=== PATIENT | female | born 1930 | race African-American/Black ===

== ENCOUNTER 2020-02-24 12:56 | Emergency (ER) | payer MEDICARE ==
[2020-02-24 13:43] LABS: Hemoglobin 7.7 g/dL (12.0-16.0); Mean Corpuscular HGB CONC 30.8 g/dL (32.0-36.0); Mean Corpuscular Hemoglobin 31.4 pg (27.0-31.0); Mean Platelet Volume 6.4 fL (7.4-10.4); Platelet Count 431 thou/uL (130-400); RBC Distribution Width 23.2 % (11.5-14.5); Red Blood Cell (RBC) Count 2.45 mill/uL (4.20-5.40); White Blood Cell (WBC) Count 15.2 thou/uL (4.8-10.8)
[2020-02-24 13:48] LABS: ALT (SGPT) 10 U/L (8-55); AST (SGOT) 13 U/L (5-34); Albumin 3.6 g/dL (3.4-4.8); Alkaline Phosphatase 75 U/L (40-110); Anion Gap 15 mmol/L (10-20); BUN (Urea Nitrogen) 46 mg/dL (9.8-20.1); Bilirubin, Total 0.3 mg/dL (0.2-1.2); Calc. Creatinine Clearance 0 mL/min (70-130); Calcium 9.1 mg/dL (7.8-10.44); Carbon Dioxide 23 mmol/L (23-31); Chloride 107 mmol/L (98-107); Estimated GFR-MDRD 26; Globulin 3.3 g/dL (2.4-3.5); Glucose 166 mg/dL (83-110); Potassium 4.2 mmol/L (3.5-5.1); Protein, Total 6.9 g/dL (6.0-8.3); Sodium 141 mmol/L (136-145)
--- NOTE | 2020-02-24 14:03 | CT ---
Head CT without contrast: 02/24/2020 HISTORY:Syncope TECHNIQUE: Serial axial CT imaging at5 mm intervals from thevertex through skull base without contras t. Coronal and sagittal reformatted imaging obtained Findings:The imaged paranasal sinuses and mastoid air cells are well aerated. There is atheroscleroti c calcification of the cavernous carotid arteries. No acute osseous abnormality. No intracranial hemorrhage, midline shift, or mass effect. Mild periventricular hypodensity noted, ev idence of small vessel disease. There is a partially calcified mass along the planum sphenoidale/cribriform plate measuring 2.0 cm AP dimension, 1 cm craniocaudal dimension, and 1.7 cm transverse dimension. A meningioma is favored. Nonemergent follow-up MRI with and without contrast advised. Impression:Probable meningioma in the region of the planum sphenoidale/cribriform plate for which fol low-up MRI is advised. No acute findings are seen.
[2020-02-24 14:21] LABS: #Basophils 0.2 thou/uL (0.0-0.2); #Lymphocytes 1.8 thou/uL (1.20-3.40); #Monocytes 0.4 thou/uL (0.11-0.59); #Neutrophils 12.8 thou/uL (1.40-6.50); %Basophils 1.5 % (0.0-1.0); %Eosinophils 0.2 % (0.0-10.0); %Lymphocytes 11.5 % (21.0-51.0); %Monocytes 2.9 % (0.0-10.0); %Neutrophils 83.9 % (42.0-75.0); Anisocytosis SLIGHT = 6-15 cells (100X) (0-5/hpf); Elliptocytes SLIGHT = 2-5 cells (100X) (0-1/hpf); Hypochromia SLIGHT = 6-15 cells (100X) (0-5/hpf); MDiff Complete? YES; Macrocytosis SLIGHT = 6-15 cells (100X) (0-5/hpf); Microcytosis SLIGHT = 6-15 cells (100X) (0-5/hpf); Platelet Morphology Comment Appears Increased; Target Cells SLIGHT = 2-5 cells (100X) (0-1/hpf)
[2020-02-24 14:43] LABS: Bilirubin Negative (Negative); Blood, Urine Negative (Negative); Clarity Cloudy (Clear); Glucose, Urine (Dipstick) Negative (Negative); Ketone, Urine Negative (Negative); Leukocyte Negative (Negative); Nitrite Negative (Negative); Protein, Urine (Dipstick) Negative (Neg-Trace); Specific Gravity, Urine 1.015 (1.005-1.030); Urobilinogen 0.2 mg/dL (Less than 2); pH, Urine 5.5 (5.0-9.0)
--- NOTE | 2020-02-24 20:35 | RAD ---
PORTABLE CHEST: 02/24/20 The heart is mildly enlarged but there is no congestive change or pleural effusion. Calcification is present in the aortic arch. No focal pulmonary infiltrate was seen. Some of the basilar markings are minimally prominent, but in part this may be due to the patient being turned slightly. There may be s ome calcific tendonitis involving the right shoulder. IMPRESSION: Mild cardiomegaly and arteriosclerosis. No gross congestive change. POS: HOME
== END 2020-02-24 14:48 | disposition short-term general hospital (02) ==
LOC: BURERS 12:56
DX: D64.9 Anemia, unspecified (principal); R00.1 Bradycardia, unspecified; R55 Syncope and collapse; N28.9 Disorder of kidney and ureter, unspecified; I11.0 Hypertensive heart disease with heart failure; I50.9 Heart failure, unspecified; K21.9 Gastro-esophageal reflux disease without esophagitis; Z79.899 Other long term (current) drug therapy
CPT/HCPCS: 36415; 70450; 71045; 80053; 81003; 83880; 84484; 85025; 93005